=== PATIENT | male | born 1945 | race Caucasian/White ===

== ENCOUNTER 2017-08-05 19:03 | Emergency (ER) | payer MEDICARE ==
[2017-08-05 19:26] VITALS: BP 137/90
--- NOTE | 2017-08-05 19:58 | UC ---
Complaint Male HPI - HPI Summary HPI Summary: Pt c/o sudden onset of urinary symptoms of frequency, urgency and dysuria X 1 day. Pt is visiting from [place] and has been playing golf daily and recently sat on airplane for prolonged period of time. Has hx of kidney infection. Also, has c/o low back pain pt states it began after playing multiple rounds of golf. - History of Current Complaint Chief Complaint: UCGU Stated Complaint: URINARY Time Seen by Provider: 08/05/17 19:52 Hx Obtained From: Patient Onset/Duration: Sudden Onset Severity Initially: Mild Severity Currently: Mild Pain Intensity: 5 Location: None Character: Sharp, Burning Aggravating Factor(s): Voiding Alleviating Factor(s): Nothing Associated Signs And Symptoms: Positive: Back Pain, Dysuria - Risk Factors Testicular Torsion: Negative - Allergies/Home Medications Allergies/Adverse Reactions: Allergies Allergy/AdvReac Type Severity Reaction Status Date / Time No Known Allergies Allergy Verified 08/05/17 19:23 Home Medications: Home Medications Atorvastatin Calcium [Lipitor] 40 mg PO DAILY 08/05/17 [History Confirmed ] Losartan TAB* [Cozaar TAB*] 25 mg PO DAILY 08/05/17 [History Confirmed 08/05/17] PMH/Surg Hx/FS Hx/Imm Hx Previously Healthy: Yes Endocrine History: Dyslipidemia Cardiovascular History: Hypertension - Surgical History Surgical History: None - Family History Known Family History: Positive: Cardiac Disease - Social History Occupation: Retired Lives: With Family Alcohol Use: Weekly Substance Use Type: None Smoking Status (MU): Never Smoked Tobacco Review of Systems Constitutional: Negative Skin: Negative Eyes: Negative ENT: Negative Respiratory: Negative Cardiovascular: Negative Gastrointestinal: Negative Genitourinary: Dysuria, Frequency, Urgency Motor: Negative Neurovascular: Negative Musculoskeletal: Myalgia - low back Neurological: Negative Psychological: Negative Is Patient Immunocompromised?: No All Other Systems Reviewed And Are Negative: Yes Physical Exam Triage Information Reviewed: Yes Appearance: Well-Appearing Vital Signs: Initial Vital Signs Temp 98.6 F 08/05/17 19:20 Pulse 83 08/05/17 19:20 Resp 16 08/05/17 19:20 BP 137/90 08/05/17 19:20 Pulse Ox 98 08/05/17 19:20 Vital Signs Reviewed: Yes Eye Exam: Normal ENT Exam: Normal Dental Exam: Normal Neck exam: Normal Respiratory Exam: Normal Cardiovascular Exam: Normal Abdominal Exam: Normal Musculoskeletal Exam: Other Musculoskeletal: Positive: Other: - low back left side Neurological Exam: Normal Psychological Exam: Normal Skin Exam: Normal Complaint Male Course/Dx - Differential Dx/Diagnosis Differential Diagnosis/HQI/PQRI: Other Provider Diagnoses: urethritis Discharge - Sign-Out/Discharge Documenting (check all that apply): Discharge/Admit/Transfer - Discharge Plan Condition: Stable Disposition: HOME Prescriptions: Cephalexin CAP* [Keflex 500 CAP*] 500 mg PO Q8H #21 cap Patient Education Materials: Nonspecific Urethritis in Men (ED) Referrals: Non Staff,Doctor [Primary Care Provider] - Additional Instructions: Please follow up with your PCP as needed. - Billing Disposition and Condition Condition: STABLE Disposition: Home
--- NOTE | 2017-08-08 08:55 | UC ---
- Progress Note Progress Note: please call this pt and let him know that his urine cx was neg. pt should f/u with pcp to discuss discontinueing the abx as he does not appear to have an infection. Discharge - Sign-Out/Discharge Documenting (check all that apply): Post-Discharge Follow Up - Discharge Plan Condition: Stable Disposition: HOME Prescriptions: Cephalexin CAP* [Keflex 500 CAP*] 500 mg PO Q8H #21 cap Patient Education Materials: Nonspecific Urethritis in Men (ED) Referrals: Non Staff,Doctor [Primary Care Provider] - Additional Instructions: Please follow up with your PCP as needed. - Billing Disposition and Condition Condition: STABLE Disposition: Home
== END 2017-08-05 20:08 | disposition home or self-care (01) ==
LOC: UCCORT 19:03
DX: N34.2 Other urethritis (principal); E78.5 Hyperlipidemia, unspecified; I10 Essential (primary) hypertension
CPT/HCPCS: 81003; 87086; 99202; G0463